=== PATIENT | female | born 1960 | race Hispanic/Latino ===

== ENCOUNTER 2020-08-13 10:00 | Inpatient (IN) | payer BC ==
[~2020-08-13] VITALS: Ht 160 cm; Wt 77.7 kg
[2020-08-13 12:51] LABS: APPEARANCE,URINE Clear (CLEAR); BILIRUBIN,URINE Negative (NEGATIVE); COLOR,URINE Dark Yellow (YELLOW); GLUCOSE, URINE (UA) Negative (NEGATIVE); KETONES,URINE Negative (NEGATIVE); LEUKOCYTE ESTERASE ,URINE Small (NEGATIVE); NITRATE,URINE Negative (NEGATIVE); OCCULT BLOOD,URINE Nonhemolyzed Trace (NEGATIVE); PROTEIN,URINE Negative (NEGATIVE); UROBILINOGEN,URINE 0.2 mg/dL (0.2-1.0)
[2020-08-13 13:00] LABS: BACTERIA,URINE Rare /HPF (None Seen); RBC,URINE 0-1 /HPF (0-1); WBC,URINE 0-1 /HPF (0-1)
[2020-08-14 09:48] VITALS: BP 133/54
[2020-08-14] MEDS ORDERED: BENA1TAB71 PO (15:12)
[2020-08-14] MEDS ORDERED: CYCL10TA16 PO (15:12)
[2020-08-14] MEDS ORDERED: SITA1TAB6 PO (15:12)
[2020-08-14] MEDS ORDERED: [UNRECOGNIZED DRUG - CODE] PO (15:12)
[2020-08-14] MEDS ORDERED: TIZANIDINE PO (15:12)
[2020-08-14] MEDS ORDERED: ROSU5TAB12 PO (15:12)
[2020-08-14] MEDS ORDERED: GABA-529 PO (15:12)
[2020-08-17] VITALS (24 sets, daily range): BP systolic 112–167; BP diastolic 58–90
[2020-08-17] MEDS ORDERED: 0.9%NACL 1000ML 1,000 ML IV ONE ×2 (07:23→08:14)
[2020-08-17] MEDS ORDERED: CLINDAMYCIN IVPB 900MG/50ML 50 ML IV ONE (07:24)
[2020-08-17] MEDS ORDERED: FISH1CAP27 PO (07:28)
[2020-08-17] MEDS ORDERED: SUCCINYLCHOLINE CHLORIDE 20 MG/ML 10 ML VIAL ONE (07:42)
[2020-08-17] MEDS ORDERED: GLYCOPYRROLATE 1 MG/5 ML SYRINGE ONE (07:42)
[2020-08-17] MEDS ORDERED: LIDOCAINE PF 100MG/5ML (2%) SYRINGE 5ML ONE ×2 (07:42→11:46)
[2020-08-17] MEDS ORDERED: NEOSTIGMINE 5MG/5ML SYR IV ONE (07:42)
[2020-08-17] MEDS ORDERED: DEXAMETHASONE SOD PHOSPHATE 10MG/ML 1ML VIAL ONE (07:42)
[2020-08-17] MEDS ORDERED: PROPOFOL 10 MG/ML 20ML VIAL IV ONE ×2 (07:42→10:39)
[2020-08-17] MEDS ORDERED: ONDANSETRON 4MG INJ ONE (07:42)
[2020-08-17] MEDS ORDERED: MIDAZOLAM HCL 1 MG/ML 2ML VIAL ONE (07:43)
[2020-08-17] MEDS ORDERED: FENTANYL CITRATE PF 50 MCG/1 ML 2ML VIAL ONE (07:43)
[2020-08-17] MEDS ORDERED: ROCURONIUM 10MG/1ML SYR 10 MG/ML ML ONE (07:43)
[2020-08-17] MEDS ORDERED: TRANEXAMIC ACID 1000MG/10ML ONE ×2 (07:44→12:12)
[2020-08-17] MEDS ORDERED: ROPIVACAINE 0.5% 5MG/ML 30ML IJ ONE (07:47)
[2020-08-17] MEDS ORDERED: KETOROLAC 30MG VIAL (30MG/ML) ONE (07:50)
[2020-08-17] MEDS ORDERED: EPHEDRINE SULFATE 50 MG/ML AMPULE ONE (07:56)
[2020-08-17] MEDS ORDERED: CEFAZOLIN SODIUM 1 GM VIAL IVP ONE (08:00)
[2020-08-17] MEDS ORDERED: HYDROMORPHONE 1 MG INJ ONE (08:00)
[2020-08-17] MEDS ORDERED: METOCLOPRAMIDE 10 MG/2 ML VIAL ONE (08:18)
[2020-08-17] MEDS ORDERED: ACETAMINOPHEN 500 MG TABLET ONE (08:19)
[2020-08-17] MEDS ORDERED: KETOROLAC 15MG/ML VIAL (15MG/ML) ONE (08:19)
[2020-08-17] MEDS ORDERED: CELECOXIB 200 MG CAP ONE (08:19)
[2020-08-17] MEDS ORDERED: MEPERIDINE-PF 25 MG/ML SYG ONE (09:09)
[2020-08-17] MEDS: CLINDAMYCIN 900MG/6ML INJ ONE ×3 (09:20→10:23)
[2020-08-17] MEDS ORDERED: HETASTARCH IN 0.9 % NACL 500 ML IV ONE (09:44)
[2020-08-17] MEDS ORDERED: FENTANYL CITRATE PF 50 MCG/1 ML 5ML AMP IV ONE (10:07)
[2020-08-17] MEDS ORDERED: POTASSIUM CHLORIDE 10% ELIXIR 20 MEQ/15 ML UDCUP PO PRN (11:45)
[2020-08-17] MEDS ORDERED: CALCIUM CARB 500MG PO PRN (11:45)
[2020-08-17] MEDS ORDERED: KETOROLAC 15MG/ML VIAL (15MG/ML) IV PRN (11:45)
[2020-08-17] MEDS ORDERED: POTASSIUM CHLORIDE 20MEQ/100ML 100 ML IV PRN (11:45)
[2020-08-17] MEDS: ACETAMINOPHEN 500 MG TABLET PO SCH ×2 (11:45→20:43)
[2020-08-17] MEDS ORDERED: FERROUS FUMARATE 324 MG TABLET PO PRN (11:45)
[2020-08-17] MEDS ORDERED: LIDOCAINE HCL-MPF 1% 2ML VIAL IV PRN (11:45)
[2020-08-17] MEDS: 0.9%NACL 1000ML 1,000 ML IV SCH ×2 (11:45→21:45)
[2020-08-17] MEDS ORDERED: ONDANSETRON 4MG INJ IVP PRN (11:45)
[2020-08-17] MEDS ORDERED: DiphenhydrAMINE HCL 50 MG/ML VIAL IVP PRN (11:45)
[2020-08-17] MEDS ORDERED: KCL 20 MEQ ERTAB PO PRN (11:45)
[2020-08-17] MEDS ORDERED: TRAMADOL HCL 50 MG TABLET PO PRN (11:45)
[2020-08-17] MEDS: OXYCODONE HCL 5 MG TAB PO PRN ×2 (15:34→20:40)
[2020-08-17] MEDS: INSULIN HUMULIN R 100 UNIT/ML 3ML SQ SCH ×2 (15:38→21:00)
[2020-08-17] MEDS: CLINDAMYCIN IVPB 900MG/50ML 50 ML IVPB SCH (18:03)
[2020-08-17] MEDS: FISH OIL 1000 MG/CAP PO SCH (20:40)
[2020-08-17] MEDS: CYCLOBENZAPRINE HCL 10 MG TABLET PO SCH (20:41)
[2020-08-17] MEDS: GABAPENTIN 100 MG CAPSULE PO SCH (20:41)
[2020-08-17] MEDS: FAMOTIDINE 20MG TAB PO SCH (20:41)
[2020-08-17] MEDS: ATORVASTATIN 10 MG TABLET PO SCH (20:41)
[2020-08-17] MEDS: CELECOXIB 200 MG CAP PO SCH (20:43)
[2020-08-17] MEDS ORDERED: [UNRECOGNIZED DRUG - OTHER] PO SCH (21:00)
[2020-08-17] MEDS ORDERED: HYDROCHLOROTHIAZIDE PO SCH (21:00)
[2020-08-17] MEDS: TIZANIDINE 2 MG PO SCH (21:00)
[2020-08-17] MEDS ORDERED: BENAZEPRIL PO SCH (21:00)
[2020-08-17] MEDS: BENAZEPRIL PO SCH (21:00)
[2020-08-17] MEDS ORDERED: PAROXETINE HCL 12.5 MG PO SCH (21:00)
[2020-08-17] MEDS ORDERED: METFORMIN HCL PO SCH (21:00)
[2020-08-17] MEDS ORDERED: NON-FORMULARY MEDICATION 1 EACH (Rosuvastatin Calcium 5 MG) PO SCH (21:00)
[2020-08-17] MEDS ORDERED: [UNRECOGNIZED DRUG - OTHER] PO SCH (21:00)
[2020-08-17] MEDS ORDERED: SITAGLIPTIN PHOS PO SCH (21:00)
[2020-08-17] MEDS ORDERED: [UNRECOGNIZED DRUG - OTHER] PO SCH (21:00)
[2020-08-17] MEDS: HYDROCHLOROTHIAZIDE PO SCH (21:00)
[2020-08-18] MEDS: CLINDAMYCIN IVPB 900MG/50ML 50 ML IVPB SCH (01:45)
[2020-08-18] MEDS: ACETAMINOPHEN 500 MG TABLET PO SCH ×3 (03:45→21:05)
[2020-08-18 04:03] VITALS: BP 144/73
[2020-08-18 04:59] LABS: MEAN CORPUSCULAR HEMOGLOBIN 29.8 pg (27.0-33.0); MEAN CORPUSCULAR HGB CONC 34.5 g/dL (32.0-36.0); MEAN CORPUSCULAR VOLUME 86.3 fL (79-99); RED BLOOD CELL COUNT(AUTO) 3.36 MIL/uL (4.00-5.50); WHITE BLOOD COUNT (AUTO) 10.8 K/uL (4.8-10.8)
[2020-08-18 05:11] LABS: CREATININE 0.7 mg/dL (0.5-1.5); POTASSIUM 3.8 mmol/L (3.5-5.1)
[2020-08-18] MEDS: INSULIN HUMULIN R 100 UNIT/ML 3ML SQ SCH ×4 (06:29→21:00)
[2020-08-18] MEDS: 0.9%NACL 1000ML 1,000 ML IV SCH (07:45)
[2020-08-18] MEDS: OXYCODONE HCL 5 MG TAB PO PRN ×4 (08:04→21:05)
[2020-08-18 08:16] VITALS: BP 136/76
[2020-08-18] MEDS: POLYETHYLENE GLYCOL 3350 17 GM POWD.PACK PO SCH (09:15)
[2020-08-18] MEDS: CELECOXIB 200 MG CAP PO SCH ×2 (09:15→21:05)
[2020-08-18] MEDS: GABAPENTIN 100 MG CAPSULE PO SCH ×2 (09:15→21:06)
[2020-08-18] MEDS: APIXABAN 2.5 MG TABLET PO SCH ×2 (09:15→21:05)
[2020-08-18] MEDS: FAMOTIDINE 20MG TAB PO SCH ×2 (09:15→21:06)
[2020-08-18 11:52] VITALS: BP 172/69
[2020-08-18 16:00] VITALS: BP 156/71
[2020-08-18] MEDS: HYDROCHLOROTHIAZIDE PO SCH (21:00)
[2020-08-18] MEDS: BENAZEPRIL PO SCH (21:00)
[2020-08-18] MEDS: TIZANIDINE 2 MG PO SCH (21:00)
[2020-08-18] MEDS: FISH OIL 1000 MG/CAP PO SCH (21:05)
[2020-08-18] MEDS: CYCLOBENZAPRINE HCL 10 MG TABLET PO SCH (21:05)
[2020-08-18] MEDS: ATORVASTATIN 10 MG TABLET PO SCH (21:06)
[2020-08-18 23:37] VITALS: BP 126/62
[2020-08-19] MEDS: ACETAMINOPHEN 500 MG TABLET PO SCH ×2 (03:45→12:12)
[2020-08-19 04:05] VITALS: BP 124/62
[2020-08-19] MEDS: INSULIN HUMULIN R 100 UNIT/ML 3ML SQ SCH ×2 (07:18→11:30)
[2020-08-19 08:00] VITALS: BP 135/63
[2020-08-19] MEDS: CELECOXIB 200 MG CAP PO SCH (08:17)
[2020-08-19] MEDS: OXYCODONE HCL 5 MG TAB PO PRN ×2 (08:18→12:12)
[2020-08-19] MEDS: GABAPENTIN 100 MG CAPSULE PO SCH (08:18)
[2020-08-19] MEDS: POLYETHYLENE GLYCOL 3350 17 GM POWD.PACK PO SCH (08:19)
[2020-08-19] MEDS: APIXABAN 2.5 MG TABLET PO SCH (08:19)
[2020-08-19] MEDS: FAMOTIDINE 20MG TAB PO SCH (08:19)
[2020-08-19 12:03] VITALS: BP 156/74
[2020-08-19] MEDS ORDERED: HYDR-4060 PO (14:14)
[2020-08-19] MEDS ORDERED: APIX2.5T PO (14:14)
[2020-08-20] MEDS ORDERED: BISACODYL 10 MG SUPP.RECT RC PRN (11:45)
== END 2020-08-19 15:00 | disposition home health service (06) | DRG 470 ==
LOC: EDSTATUS 10:00 → DAHIP 08-17 06:30 → 3AH 08-17 13:37
PROVIDERS: ADMIT Orthopaedic Surgery; ATTEND Orthopaedic Surgery
PROC: 0SRC0J9 Replacement of Right Knee Joint with Synthetic Substitute, Cemented, Open Approach (ICD-10-PCS; principal; 2020-08-17 09:08)
DX: M17.11 Unilateral primary osteoarthritis, right knee (principal); D64.9 Anemia, unspecified; G89.29 Other chronic pain; I10 Essential (primary) hypertension; S83.511A Sprain of anterior cruciate ligament of right knee, initial encounter; X58.XXXA Exposure to other specified factors, initial encounter; E78.00 Pure hypercholesterolemia, unspecified; Z20.822 Contact with and (suspected) exposure to COVID-19; E11.9 Type 2 diabetes mellitus without complications; Z88.0 Allergy status to penicillin; Z88.6 Allergy status to analgesic agent; Z88.3 Allergy status to other anti-infective agents; Z83.3 Family history of diabetes mellitus; Z82.49 Family history of ischemic heart disease and other diseases of the circulatory system; Z80.6 Family history of leukemia; Z82.61 Family history of arthritis; Z83.49 Family history of other endocrine, nutritional and metabolic diseases; Y93.89 Activity, other specified; Y92.89 Other specified places as the place of occurrence of the external cause; Y99.8 Other external cause status
CPT/HCPCS: 36415; 80048; 81001; 82948; 85027; 87641; 97039; G0378; J0330; J0690; J1100; J1170; J1885; J2001; J2175; J2250; J2405; J2704; J2710; J2765; J2795; J3010; J3490; J7030; U0003

== ENCOUNTER 2020-11-24 11:49 | Emergency (ER) | payer BC ==
[~2020-11-24] VITALS: Ht 160 cm; Wt 77.1 kg
[~2020-11-24 11:49] MED LIST: APIX2.5T PO; BENA1TAB71 PO; CYCL10 PO; FISH1CAP27 PO; GABA-529 PO; HYDR-4060 PO; ROSU5TAB12 PO; SITA1TAB6 PO; TIZANIDINE PO; [UNRECOGNIZED DRUG - CODE] PO
[2020-11-24] MEDS ORDERED: HYDROCODONE/ACETAMINOPHEN 5/325 MG TAB PO SCH (12:30)
[2020-11-24 13:36] VITALS: BP 160/60
[2020-11-24] MEDS ORDERED: KETOROLAC 30MG VIAL (30MG/ML) IM ONE (14:00)
[2020-11-24] MEDS ORDERED: PHARMACY COMMUNICATION MISC SCH (14:00)
[2020-11-24] MEDS ORDERED: ACET1TAB25 PO (14:37)
[2020-11-24 15:36] VITALS: BP 136/67
== END 2020-11-24 15:45 | disposition home or self-care (01) ==
LOC: EDH 12:00
DX: S80.01XA Contusion of right knee, initial encounter (principal); M25.461 Effusion, right knee; E11.9 Type 2 diabetes mellitus without complications; E78.00 Pure hypercholesterolemia, unspecified; I10 Essential (primary) hypertension; Z79.01 Long term (current) use of anticoagulants; Z79.1 Long term (current) use of non-steroidal anti-inflammatories (NSAID); Z79.84 Long term (current) use of oral hypoglycemic drugs; Z88.3 Allergy status to other anti-infective agents; Z98.890 Other specified postprocedural states; Z88.0 Allergy status to penicillin; Z88.6 Allergy status to analgesic agent; Z79.899 Other long term (current) drug therapy; W54.1XXA Struck by dog, initial encounter; Y93.89 Activity, other specified; Y92.89 Other specified places as the place of occurrence of the external cause; Y99.8 Other external cause status
CPT/HCPCS: 29505; 73562; 96372; 99284; J1885